=== PATIENT | female | born 1955 | race African-American/Black ===

== ENCOUNTER 2018-11-15 17:20 | Emergency (ER) | payer MEDICAID ==
[~2018-11-15] VITALS: Ht 162.6 cm; Wt 104.0 kg
[~2018-11-15 17:20] MED LIST: CARI350T27 PO; CHOL500010 PO; CITA40TA11 PO; CLON2TAB11 PO; FAMO20TA8 PO; HYDR25TA PO; MELO-106 PO; OXCA300T31 PO; ZIPR80CA2 PO; triumeq PO
[2018-11-15 18:00] VITALS: BP 129/58
== END 2018-11-15 20:45 | disposition left against medical advice (07) ==
LOC: ER 17:20
DX: Z53.21 Procedure and treatment not carried out due to patient leaving prior to being seen by health care provider (principal)

== ENCOUNTER 2018-11-16 13:34 | Emergency (ER) | payer MEDICAID ==
[~2018-11-16] VITALS: Ht 162.6 cm; Wt 107.0 kg
[2018-11-16] MEDS ORDERED: IBUPROFEN 600MG TABLET PO ONE (16:15)
[2018-11-16 16:37] VITALS: BP 160/70
== END 2018-11-16 16:41 | disposition home or self-care (01) ==
LOC: ER 15:34
DX: L02.11 Cutaneous abscess of neck (principal); F31.9 Bipolar disorder, unspecified; F20.9 Schizophrenia, unspecified; Z79.899 Other long term (current) drug therapy
CPT/HCPCS: 99283